=== PATIENT | female | born 1990 | race Caucasian/White ===

== ENCOUNTER 2017-04-28 10:24 | Emergency (ER) | payer OTHER ==
[~2017-04-28] VITALS: Ht 165.1 cm; Wt 58.5 kg
--- NOTE | 2017-04-28 10:43 | NUR ---
ARRIVAL PATIENT ARRIVED TO [facility] AMBULATORY WITH FAMILY, C/O OF BRIGHT RED VAGINAL BLEEDING FOR THE PAST 2 WEEKS, DID TAKE TYLENOL AT 0430 THIS MORNING, DENIES PAIN, HERE FOR FURTHER EVAL.
[2017-04-28 11:11] LABS: BASOPHIL % 0.3 % (0.0-0.2); EOSINOPHIL # 0.2 10^3/uL (0.0-0.2); EOSINOPHIL % 1.1 % (0.0-5.0); HEMOGLOBIN 13.5 g/dL (12.0-15.0); LYMPHOCYTES # 3.8 10^3/uL (1.0-4.8); LYMPHOCYTES % 27.7 % (24.0-44.0); MEAN CELL HGB 30.2 pg (26-34); MEAN CELL HGB CONCENTRATION 32.5 g/dL (33-37); MEAN CORP VOLUME 93.1 fL (78-100); MONOCYTES # 0.9 10^3/uL (0.3-0.8); MONOCYTES % 6.4 % (5.0-12.0); NEUTROPHIL # 8.9 10^3/uL (1.8-7.7); NEUTROPHILS % 64.2 % (41.0-85.0); RED CELL DISTRIBUTION WIDTH 13.7 % (11.5-14.5); WHITE BLOOD CELL 13.8 10^3/uL (4.5-11.0)
[2017-04-28 11:13] LABS: HCG URINE PREGNANCY POSITIVE (NEGATIVE)
[2017-04-28 11:15] LABS: BILIRUBIN,URINE NEGATIVE (NEGATIVE); UROBILINOGEN,URINE NORMAL (NEGATIVE)
[2017-04-28 11:24] LABS: UR BENZODIAZEPINE QUAL NEGATIVE (NEGATIVE); UR COCAINE QUAL NEGATIVE (NEGATIVE)
[2017-04-28 11:25] LABS: APPEARANCE,URINE CLEAR (CLEAR); UA COLOR STRAW (YELLOW)
--- NOTE | 2017-04-28 11:25 | NUR ---
ULTRASOUND CALLED AND NOTIFIED RAMIRO OF ULTRASOUND ORDER
--- NOTE | 2017-04-28 11:28 | NUR ---
PELVIC ASSISTED DOCTOR IGNACIO WITH PELVIC, PATIENT TOLERATED WELL.
[2017-04-28 11:30] LABS: CALCIUM 9.2 mg/dL (8.4-10.5); CARBON DIOXIDE 26.6 mmol/L (20.0-32)
[2017-04-28 11:32] LABS: WBC,URINE 0-2 WBC/HPF (0-2)
--- NOTE | 2017-04-28 11:47 | ER.PDOC ---
General Chief Complaint: Vaginal Bleed Stated Complaint: FEMALE Time seen by MD: 11:45 Source: patient Exam Limitations: no limitations History of Present Illness Initial Comments Bleeding per vagina for 2 weeks. No abdominal pain. Severity/Quality: moderate Vaginal Bleed: abnormal bleeding : 3 Para: 11 Associated Symptoms: denies symptoms Allergies: Coded Allergies: No Known Allergies (Unverified , 04/28/17) Home Meds Reported Medications Alprazolam (XANAX) 0.5 Mg Tablet, 1 TAB PO BID Y for ANXIETY, #60 TAB 04/28/17 Amitriptyline Hcl (AMITRIPTYLINE HCL) 50 Mg Tablet, 1 TAB PO HS, #30 TAB 2 Refills 04/28/17 Venlafaxine Hcl (EFFEXOR XR) 150 Mg Cap.er.24h, 1 CAP PO DAILY, #30 CAP 2 Refills 04/28/17 Past Medical History Surgical History: LMP (females 10-50): 2 WEEKS Social History Smoking: cigarettes, less than 1 pack/day Alcohol Use: none Drug Use: marijuana Review of Systems Constitutional: no symptoms reported Respiratory: no symptoms reported Cardiovascular: no symptoms reported Gastrointestinal: no symptoms reported Genitourinary: see HPI All Other Systems: Reviewed and Negative Physical Exam General Appearance: No Apparent Distress, WD/WN Neck: nml inspection, non-tender Cardiovascular/Respiratory: Regular Rate, Rhythm, No M/R/G, Normal Peripheral Pulses, No JVD, Normal Breath Sounds, No Respiratory Distress Abdomen: Normal Bowel Sounds, Non Tender, Soft, No Organomegaly, No Pulsatile Mass Pelvic: External Exam Normal, Active Bleeding Extremities: Normal Range of Motion, Non-Tender, Normal Inspection, No Pedal Edema, No Calf Tenderness, Normal Capillary Refill Neurologic/Psychiatric: moss gatherer II-XII NML as Tested, No Motor/Sensory Deficits, Alert, Normal Mood/Affect, Oriented x 3 Skin: Normal Color Results/Orders Results/Orders Laboratory Tests Test 04/28/17 11:00 White Blood Count 13.8 10^3/uL (4.5-11.0) Red Blood Count 4.47 10^6/uL (4.00-5.20) Hemoglobin 13.5 g/dL (12.0-15.0) Hematocrit 41.6 % (36.0-46.0) Mean Corpuscular Volume 93.1 fL (78-100) Mean Corpuscular Hemoglobin 30.2 pg (26-34) Mean Corpuscular Hemoglobin Concent 32.5 g/dL (33-37) Red Cell Distribution Width 13.7 % (11.5-14.5) Platelet Count 260 10^3/uL (150-400) Mean Platelet Volume 10.0 fL (7.8-11.0) Neutrophils (%) (Auto) 64.2 % (41.0-85.0) Lymphocytes (%) (Auto) 27.7 % (24.0-44.0) Monocytes (%) (Auto) 6.4 % (5.0-12.0) Neutrophils # (Auto) 8.9 10^3/uL (1.8-7.7) Lymphocytes # (Auto) 3.8 10^3/uL (1.0-4.8) Monocytes # (Auto) 0.9 10^3/uL (0.3-0.8) Absolute Immature Granulocyte (auto 0.04 10^3 u/L (0-2) Eosinophils % 1.1 % (0.0-5.0) Basophils % 0.3 % (0.0-0.2) Basophils # 0.0 10^3/uL (0.0-0.1) Eosinophil Count 0.2 10^3/uL (0.0-0.2) Prothrombin Time 9.7 SEC (9.8-11.9) Prothrombin Time INR (Non-Therap) 0.9 Activated Partial Thromboplast Time 21.3 SEC (24.67-30.72) Urine Collection Type VOID Urine Color STRAW (YELLOW) Urine Appearance CLEAR (CLEAR) Urine Bilirubin NEGATIVE MG/DL (NEGATIVE) Urine Ketones NEGATIVE (NEGATIVE) Urine Specific [place] 1.005 (1.005-1.035) Urine pH 7 (5.0-6.0) Urine Protein NEGATIVE (NEGATIVE) Urine Urobilinogen NORMAL (NEGATIVE) Urine Nitrate NEGATIVE (NEGATIVE) Urine Leukocyte Esterase 25 /uL TRACE (NEGATIVE) Urine Blood 250 4+ (NEGATIVE) Urine RBC 2-5 RBC/HPF (NONE SEEN) Urine WBC 0-2 WBC/HPF (0-2) Urine Squamous Epithelial Cells MANY #/HPF (FEW) Urine Bacteria NONE SEEN (NONE SEEN) Urine Glucose NORMAL (NEGATIVE) Urine HCG, Qualitative POSITIVE (NEGATIVE) Sodium Level 136 mmol/L (132-145) Potassium Level 4.0 mmol/L (3.6-5.2) Chloride Level 100.0 mmol/L (96-109) Carbon Dioxide Level 26.6 mmol/L (20.0-32) Anion Gap 13.4 Blood Urea Nitrogen 11 mg/dL (7-18) Creatinine 0.77 mg/dL (0.59-1.40) Estimated GFR () 108.0 (>/=60) BUN/Creatinine Ratio 14.0 Glucose Level 79 mg/dL (70-110) Calcium Level 9.2 mg/dL (8.4-10.5) Total Bilirubin 0.3 mg/dL (0.2-1.0) Aspartate Amino Transf (AST/SGOT) 18 U/L (0-35) Alanine Aminotransferase (ALT/SGPT) 29 U/L (12-78) Alkaline Phosphatase 69 U/L (50-136) Total Protein 7.7 g/dL (6.4-8.2) Albumin 3.9 g/dL (3.4-5.0) Globulin 3.8 Human Chorionic Gonadotropin, Quant 1239 mIU/mL Opiates Screen NEGATIVE (NEGATIVE) Barbiturate Screen NEGATIVE (NEGATIVE) Urine Tricyclic Antidepressants POSITIVE (NEGATIVE) Phencyclidine (PCP) Screen NEGATIVE (NEGATIVE) Amphetamines Screen POSITIVE (NEGATIVE) Benzodiazepines Screen NEGATIVE (NEGATIVE) Cocaine Screen NEGATIVE (NEGATIVE) Ur Tetrahydrocannabinol (THC) Scrn NEGATIVE (NEGATIVE) Percent Immature Gran (Cell Imm) 0.30 % (0.00-0.50) Progress Progress Patient did not want to wait for the US results so she signed and left AMA. She understands that she can have worsening bleeding, shock and eventually resulting in . Departure Time of Disposition: 13:39 Disposition: 07 AGAINST MEDICAL ADVICE Impression: Primary Impression: Vaginal bleeding in patient at less than 20 weeks gestation Condition: Against Medical Advice Referrals: UNDEFINED,PHYSICIAN (PCP) PRIMARY CARE PROVIDER Duration or Time Spent with Pa: 50 mins SOPHIA PIERRE MD Apr 28, 2017 11:47
--- NOTE | 2017-04-28 12:14 | NUR ---
ULTRASOUND PATIENT AMBULATORY TO ULTRASOUND.
[2017-04-28] MEDS ORDERED: VENL150C PO (12:33)
[2017-04-28] MEDS ORDERED: AMIT50TA PO (12:33)
[2017-04-28] MEDS ORDERED: ALPR0.5T PO (12:33)
--- NOTE | 2017-04-28 12:39 | NUR ---
ULTRASOUND PATIENT BACK FROM ULTRASOUND.
--- NOTE | 2017-04-28 13:34 | NUR ---
status PATIENT NOT WILLING TO STAY UNTIL ULTRASOUND REPORT IS BACK, SIGNED OUT AMA AND STATES "I WILL GET MY DOCTOR TO CALL FOR THE RESULTS." LEFT ED AMBULATORY TO POV NO DISTRESS NOTED.
--- NOTE | 2017-04-28 13:42 | DIREP ---
PROCEDURE:US OB 1ST TRI TRANS ABD COMPARISON:None. INDICATIONS:vaginal bleeding TECHNIQUE:Transabdominal and endovaginal pelvic ultrasound examinations were performed. Endovaginal images were performed to optimally evaluate the and maternal adnexal structures. FINDINGS: UTERUS: 8.2 x 4.3 x 5.6 cm. Soft tissue/blood in the lower uterine segment. RIGHT OVARY: 6.0 x 2.4 x 2.2 cm. LEFT OVARY: 4.7 x 1.8 x 2.5 cm. CUL-DE-SAC: Negative. GESTATIONAL SAC: Not visualized. YOLK SAC: Not visualized. POLE: Not visualized. CARDIAC ACTIVITY: Not present. CLINICAL AGE: 5W 0D. OTHER: No additional findings. CONCLUSION: 1. No evidence of intrauterine . No suspicious adnexal structures. In the absence of an intrauterine , ectopic cannot be excluded. Findings should be evaluated in their clinical context to determine if additional evaluation is warranted. Consider followup ultrasound and correlation with serial beta-hCG levels. Dictated by: René Mendoza M.D. on 04/28/2017 at 01:36 PM
== END 2017-04-28 13:34 | disposition left against medical advice (07) ==
LOC: ER 11:08
DX: O20.9 Hemorrhage in early pregnancy, unspecified (principal); O99.331 Smoking (tobacco) complicating pregnancy, first trimester; F12.10 Cannabis abuse, uncomplicated; Z3A.01 Less than 8 weeks gestation of pregnancy; Z79.899 Other long term (current) drug therapy
CPT/HCPCS: 36415; 76801; 76817; 80053; 80307; 80324; 81000; 81025; 84702; 85025; 85610; 86900; 99285